=== PATIENT | male | born 1980 | race Caucasian/White ===

== ENCOUNTER 2025-01-29 13:33 | Outpatient (AMB) | payer OTHER, SELFPAY ==
--- NOTE | 2025-01-29 13:40 | MHC.PC.OV ---
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 He has been on lisinopril and hydrochlorothiazide, reporting minor side effects like loose stools since medication initiation. The patient has had three scalp lesions, likely cysts or a lipoma, present for about 15 years. [facility] Medical History Asthma Appendix abscess Surgical History Hx of appendectomy Family History Mother No problems noted. Maternal Grandfather Prostate cancer Social History Housing: House Alcohol intake: current Patient Tobacco Use Status: Former Tobacco user Tobacco use type: Cigarette and Cigar e-Cigarette/Vaping Use: Former Use service: No Current occupational status: employed Cognitive needs: No Hearing needs: No Vision needs: Yes Questionnaire PHQ-9 Over the last 2 weeks, how often have you been bothered by any of the following problems? 1. Little interest or pleasure in doing things: not at all 2. Feeling down, depressed, or hopeless: not at all 3. Trouble falling or staying asleep, or sleeping too much: not at all 4. Feeling tired or having little energy: not at all 5. Poor appetite or overeating: not at all 6. Feeling bad about yourself - or that you are a failure or have let yourself or your family down: not at all 7. Trouble concentrating on things, such as reading the newspaper or watching television: not at all 8. Moving or speaking so slowly that other people could have noticed. Or the opposite - being so fidgety or restless that you have been moving around a lot more than usual: not at all 9. Thoughts that you would be better off or of hurting yourself in some way: not at all Total score: 0 Depression Screening Interpretation: Negative Depression Screening Done: Yes 27256 - PHQ-9 Billing: Yes Source: Developed by Drs. Arnaldo Shirley, Priscila Crandall, Jaun Gonzalez and colleagues, with an educational fani from [email or web address]. Thrive Questionnaire Date Thrive assessed: 01/29/25 I am a: Patient What is your living situation today?: I have a steady place to live Within the past 12 months, did the food you bought not last and you didn't have the money to get more?: Never true Within the past 12 months, did you worry whether your food would run out before you got money to buy more?: Never true Do you have trouble paying for medicines?: No Do you have trouble getting transportation to medical appointments?: No Do you have trouble paying your heating and electricity bill?: No Do you have trouble taking care of your child, family member or friend?: No Do you have trouble with day-to-day activities such as bathing, preparing meals, shopping, managing finances, etc.?: No Are you currently unemployed and looking for a job?: No Are you interested in more education?: Yes Please select the resources that you would like help with: None Currently or been in a relationship where the following occur: No concerns reported THRIVE Score: 0 AUDIT C Alcohol Use Questionnaire (AUDIT-C) 1. How often do you have a drink containing alcohol?: 2-3 times a week 2. How many drinks containing alcohol do you have on a typical day when you are drinking?: 1 or 2 3. How often do you have six or more drinks on one occasion?: Monthly Total Score: 5 Score Reviewed/Action Taken: Yes SHANELLE-7 AMB Questionnaire SHANELLE-7 Date SHANELLE - 7 assessed: 01/29/25 Feeling nervous, anxious, or on edge: 0 = Not at all Not being able to stop or control worryin = Not at all Worrying too much about different things: 0 = Not at all Trouble relaxin = Not at all Being so restless that it is hard to sit still: 0 = Not at all Becoming easily annoyed or irritable: 0 = Not at all Feeling afraid as if something awful might happen: 0 = Not at all Total SHANELLE-7 score (0-4 normal; 5-9 mild; 10-14 moderate; 15-21 severe): 0 Source: Developed by Drs. Arnaldo Shirley, Priscila Crandall, Jaun Gonzalez and colleagues, with an educational fani from [email or web address]. Review of Systems Const Denies body aches, Denies chills, Denies fever(s), Denies headache(s) and Denies poor appetite Eyes Reports no additional complaints ENT Denies dysphagia, Denies dizziness, Denies headache(s) and Denies odynophagia Card Denies chest pain, Denies syncope, Denies edema, Denies irregular heart rhythm, Denies lightheadedness and Denies dyspnea Resp Denies cough and Denies dyspnea GI Denies abdominal pain, Denies constipation, Denies dysphagia, Denies diarrhea, Denies nausea, Denies odynophagia and Denies vomiting Reports no additional complaints Musc Reports no additional complaints and Denies abnormal gait Skin/Breast Reports system reviewed and no additional complaints, except as documented Neuro Denies abnormal gait, Denies dizziness, Denies syncope and Denies headache(s) Psych Reports no additional complaints Physical exam (Primary Care) Vital Signs: Last Vital Signs Pulse 126 H 01/29/25 13:42 BP 120/100 H 01/29/25 13:42 Pulse Ox 98 01/29/25 13:42 Oxygen Delivery Method Room Air 01/29/25 13:42 BMI result Body Mass Index 28.1 Tobacco/Smoking Status: Tobacco use Status Tobacco use date assessed 01/29/25 01/29/25 13:42 Patient Tobacco Use Status Former Tobacco user 01/29/25 13:55 Tobacco use type Cigarette,Cigar 01/29/25 13:55 e-Cigarette/Vaping Use Former Use 01/29/25 13:55 PHQ-9: PHQ-9 Score PHQ-9: Total score 0 01/29/25 13:42 Depression Screening Interpretation: Negative Thrive Assessment: Date of Thrive Assessment Date Thrive assessed 01/29/25 01/29/25 13:42 Currently or been in a relationship where the following occur: No concerns reported Const General: cooperative, healthy appearing, comfortable and no acute distress Orientation/consciousness: patient oriented x3 HENMT Head: Yes normocephalic Head images: 1. soft, non tender, mobile mass with smooth edges and no overlying skin changes 2. soft, non tender, mobile mass with smooth edges and no overlying skin changes 3. soft, non tender, mobile mass with smooth edges and no overlying skin changes Ears: hearing grossly normal bilaterally General nose exam: Normal external nose present Eyes General: appearance normal, both eyes and all related structures Conjunctivae: conjunctivae normal Neck Neck: Yes full ROM and Yes no lymphadenopathy Resp Effort & Inspection: normal respiratory effort Auscultation: clear to auscultation bilaterally, no crackles, no rales, no rhonchi and no wheezes Cardio Rate: regular rate Rhythm: regular rhythm Skin General skin exam: no rashes or lesions noted Neuro General: patient oriented x3 Gait exam (Neuro): Normal gait present Extrem General: Yes normal to inspection, Yes full ROM and No edema Psych Affect: normal affect Attitude: cooperative Insight: Good insight present (Psych) Judgement: Good judgement present (Psych) Coding Level of Care Code New Pt Level 4 (75394) Diagnoses Hypertension I10 Screening for hypercholesterolemia Z13.220 Overweight (BMI 25.0-29.9) E66.3 Tachycardia R00.0 Scalp mass R22.0 Screening for colorectal cancer Z12.11; Z12.12 Additional Codes PHQ-9 - 09620 - PHQ-9 Billing: Yes ([id number]) Assessment & Plan Assessment & Plan (1) Hypertension: Code(s): I10 - Essential (primary) hypertension Category: Medical Plan: Continue on current blood pressure medication. Avoid salt intake and encourage healthy diet and regular exercise. Blood pressure mildly elevated in the office today 144/78 patient does take his medication as prescribed. He states his blood pressure is always high while he is in the office. Plan to have patient check blood pressure at home and bring log to next visit. Also advised patient if at home blood pressures are persistently over 140/90 to reach out to the office and plan to increase lisinopril-hydrochlorothiazide to b.i.d.. (2) Screening for hypercholesterolemia: Code(s): Z13.220 - Encounter for screening for lipoid disorders Category: Medical Plan: Ordered for updated blood work (3) Overweight (BMI 25.0-29.9): Code(s): E66.3 - Overweight Category: Medical Plan: Healthy diet and regular exercise is encouraged. (4) Tachycardia: Code(s): R00.0 - Tachycardia, unspecified Category: Medical Plan: Patient is mildly tachycardic today in the office at 102 BPM which he states is normal for him in a doctor's office as he is incredibly anxious. Plan to obtain EKG and have patient keep log of heart rate at home as well. Reviewed return to clinic criteria. (5) Scalp mass: Comment: x3 Code(s): R22.0 - Localized swelling, mass and lump, head Category: Medical Plan: Patient is a presence of 3 scalp masses which have been present for the last 15 years. On exam they are soft and nontender and freely mobile with smooth edges. Referral was placed to general surgery for excision at patient request. (6) Screening for colorectal cancer: Code(s): Z12.11 - Encounter for screening for malignant neoplasm of colon; Z12.12 - Encounter for screening for malignant neoplasm of rectum Category: Medical Plan: Referral was placed for Cologuard box today Plan We discussed essential hypertension management, emphasizing reducing salt intake and monitoring at home. We are considering EKG due to elevated heart rate. For scalp lesions, a referral for surgical evaluation was planned. Health maintenance involves testing fasting blood glucose and screening tests, continuing with a Cologuard test for colon cancer. Follow-up is scheduled in one month for blood pressure reassessment and an annual exam. This note was constructed using voice recognition software. While every effort has been made to ensure accuracy and day habilitation specialist, still areas may have been included sometimes these areas may affect the content or meeting of the given symptoms. Total time spent caring for the patient today was 30 minutes. This includes time spent before the visit reviewing the chart, time spent during the visit, and time spent after the visit and documentation. Patient was informed and verbally consented to the use of an ambient scribe for clinic note documentation during this visit. Orders: Orders Hemoglobin A1c Today Z13.1 - Encounter for screening for diabetes mellitus TSH reflex Free T4 Today I10 - Essential (primary) hypertension, Z00.00 - Encounter for general adult medical examination without abnormal findings Vitamin D 25-OH Total Today I10 - Essential (primary) hypertension, Z00.00 - Encounter for general adult medical examination without abnormal findings Lipid Panel Today Z13.1 - Encounter for screening for diabetes mellitus, Z13.220 - Encounter for screening for lipoid disorders Vitamin B12 and Folate Today I10 - Essential (primary) hypertension, Z13.21 - Encounter for screening for nutritional disorder Free T4 (Free Thyroxine) Today I10 - Essential (primary) hypertension, Z00.00 - Encounter for general adult medical examination without abnormal findings ECG 12 lead EKG Today R00.0 - Tachycardia, unspecified Referrals Cologuard Test Z12.11 - Encounter for screening for malignant neoplasm of colon, Z12.12 - Encounter for screening for malignant neoplasm of rectum General Surgery Referral R22.0 - Localized swelling, mass and lump, head
[2025-01-29 13:42] VITALS: BP 120/100; PULSE 126; O2SAT 98; BMI 28.1
[2025-01-29 14:18] VITALS: BP 144/78; PULSE 102
--- OUTSIDE RECORDS SUMMARY | 2025-01-29 16:03 | XMS_ITS | Clinical Summary ---
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 Name Role Phone Jhon Odom Primary Care Provider [phone] Allergies No known active allergies Medications No known medications Active Problems No known active problems Immunizations Name Administration Dates Next Due Tdap 12/16/2015 Family History Medical History Relation Comments Diabetes Mother Hypertension Mother Relation Status Comments Father Alive Mother Alive Social History Tobacco Use Types Packs/Day Years Used Date Smoking Tobacco: Passive Smo ke Exposure - Never Smoker Smokeless Tobacco: Never Alcohol Use Standard Drinks/Week Comments Yes 0 (1 standard drink = 0.6 oz pur e alcohol) AUDIT-C Answer Date Recorded Frequency of Alcohol Consumption 2-3 times a wee k 09/25/2019 Average Number of Drinks Not on file 020 Frequency of Binge Drinking Not on file 08/29 Sex and Gender Information Value Date Recorded Sex Assigned at Not on file Legal Sex Male 6:59 AM MST Gender Identity Not on file Sexual Orientation Not on file Last Filed Vital Signs Vital Sign Reading Time Taken Comments Blood Pressure 125/84 09/25/2019 10:00 AM EST Pulse 96 09/25/2019 10:00 AM EST Temperature 36.6 ??C (97.8 ??F) 09/25/2019 10:[address] Respiratory Rate 16 09/25/2019 10:00 AM EST Oxygen Saturation 98% 09/25/2019 10:00 AM EST Inhaled Oxygen Concentration - - Weight 87.6 kg (193 lb 3.2 oz) 09/25/2019 10:00 AM EST Height 178.7 cm (5' 10.35 ) 09/25/2019 10:00 AM EST Body Mass Index 27.44 09/25/2019 10:00 AM EST Plan of Treatment Health Maintenance Due Date Last Done Comments CT Colonography 1979 Cologuard 1979 Colonoscopy 1979 Colorectal Cancer Screening 1979 FOBT/FIT 1979 Hepatitis C Screening 1979 Sigmoidoscopy 1979 PHQ-9 Depression Screen 1991 Annual Preventive Exam 1997 SHANELLE-7 Anxiety Screen 1997 COVID-19 Vaccine ( - 2023- season) 2024 Influenza Vaccine (Season Ended) 2025 DTaP,Tdap,and Td Vaccines (2 - Td or Tdap) 12/15/2025 12/16/2015 RSV Vaccine (SCDM) (1 - 1-dose 75+ series) 2054 Insurance [employer] Care Teams Machine 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
== END 2025-01-29 14:28 | disposition home or self-care (01) ==
LOC: HO.HMCH 13:33
DX: I10 Essential (primary) hypertension (principal); Z13.220 Encounter for screening for lipoid disorders; E66.3 Overweight; R00.0 Tachycardia, unspecified; R22.0 Localized swelling, mass and lump, head; Z12.11 Encounter for screening for malignant neoplasm of colon; Z12.12 Encounter for screening for malignant neoplasm of rectum

== ENCOUNTER → 2025-01-29 13:33 | Outpatient (BNVA) | payer OTHER, SELFPAY | DX: I10 Essential (primary) hypertension (principal); E66.3 Overweight; R00.0 Tachycardia, unspecified; R22.0 Localized swelling, mass and lump, head; Z68.28 Body mass index [BMI] 28.0-28.9, adult | CPT/HCPCS: 96127 ==